=== PATIENT | female | born 1985 | race African-American/Black ===

== ENCOUNTER 2017-06-15 00:18 | Inpatient (IN) | payer OTHER ==
[~2017-06-15] VITALS: Ht 167.6 cm; Wt 62.9 kg
[2017-06-15] MEDS ORDERED: LORazepam 1 MG TAB PO PRN (02:30)
[2017-06-15] MEDS ORDERED: LORazepam 2 MG/ML VIAL IM PRN (02:30)
[2017-06-15] MEDS ORDERED: BENZTROPINE MESYLATE 2 MG/2 ML VIAL IM PRN (02:30)
[2017-06-15] MEDS ORDERED: diphenhydrAMINE HCL 50 MG CAP - HS PRN PO (02:30)
[2017-06-15] MEDS ORDERED: MAGNESIUM HYDROXIDE SUSP 30 ML CUP PO PRN (02:30)
[2017-06-15] MEDS ORDERED: ALUMINUM/MAGNESIUM/SIMETH 30 ML CUP PO PRN (02:30)
[2017-06-15] MEDS ORDERED: BENZTROPINE MESYLATE 1 MG TAB PO PRN (02:30)
[2017-06-15] MEDS ORDERED: diphenhydrAMINE HCL 50 MG/ML VIAL - HS PRN IM (02:30)
[2017-06-15 03:00] VITALS: BP 103/60; PULSE 72; RESP 16; TEMP 97.8; O2SAT 98
[2017-06-15] MEDS: ACETAMINOPHEN 325 MG TAB PO PRN ×2 (03:16→10:00)
[2017-06-15 10:21] LABS: ANION GAP 9 MEQ/L (5-15); BICARBONATE 24.7 MEQ/L (21.0-32.0); BLOOD UREA NITROGEN 8 MG/DL (7-18); CHLORIDE 106 MEQ/L (98-107); GLOMERULAR FILTRATION RATE 107 ML/MIN (>89); POTASSIUM 3.6 MEQ/L (3.5-5.1); SODIUM (NA) 140 MEQ/L (136-145)
[2017-06-15 10:28] LABS: HDL CHOLESTEROL 60.7 MG/DL (40.0-60.0); LDL CHOLESTEROL 54 MG/DL (0-99)
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
--- NOTE | 2017-06-15 13:17 | HHI.DS ---
Psychiatry Discharge Summary Advance Directive: No Reason Not Provided: not interested Mental Health AdvanceDirective: No Health Care Proxy: No Admission Admission Date Jun 15, 2017 at 02:10 Admission Diagnosis: Tobacco Use In Past 30 Days: No Tobacco Past 30 Days Alcohol Use: Never Results Blood Pressure 103 / 60 Vital Signs Date Time Temp Pulse Resp B/P Pulse Ox O2 Delivery O2 Flow Rate FiO2 06/15/17 03:00 97.8 72 16 103/60 98 Laboratory Tests Test 06/15/17 08:59 HDL Cholesterol 60.7 MG/DL (40.0-60.0) Laboratory Results Test 06/15/17 08:59 Triglycerides Level 43 MG/DL (42-150) Cholesterol Level 123 MG/DL (120-200) LDL Cholesterol 54 MG/DL (0-99) HDL Cholesterol 60.7 MG/DL (40.0-60.0) Medications Approp Antipsych med options 1 - Minimum of three failed multiple trials of monotherapy. 2 - Documented plan to taper to monotherapy due to previous use of multiple meds OR cross-taper in progress at D/C. 3 - Documentation of augmentation of Clozapine. 4 - Justification other than those listed in allowable values 1-3, document here : Discharge Discharge Disposition: Discharge Home Discharge Instructions Diet Instructions: As Tolerated, No Restrictions Activities you can perform: Weight Bearing as García Discharge/Advance Care Plan Goals to promote your health * To prevent worsening of your condition and complications * To maintain your health at the optimal level Directions to meet your goals Take your medications as prescribed Follow your dietary instruction Follow activity as directed Keep your appointments as scheduled Take your immunizations and boosters as scheduled If your symptoms worsen call your PCP, if no PCP go to Urgent Care Center or Emergency Room For 19/06 questions related to your inpatient stay or results of tests pending at discharge, please contact Dr. Francis Noguera at Smoking is Dangerous to Your Health. Avoid second hand smoking Francis Noguera MD Jun 15, 2017 13:17
[2017-06-15] MEDS ORDERED: IBUPROFEN 800 MG TAB PO ONE (13:45)
[2017-06-15] MEDS ORDERED: NAPROXEN 500 MG TAB PO ONE (15:00)
[2017-06-15 18:17] LABS: HEMOGLOBIN A1a 1.1 %; HEMOGLOBIN A1b 0.8 %; HEMOGLOBIN Ao 85.6 %; HEMOGLOBIN F 0.9 %; HEMOGLOBIN LA1C 1.8 %; HEMOGLOBIN P3 3.7 %
== END 2017-06-15 16:50 | disposition home or self-care (01) | DRG 882 ==
LOC: H260 02:10
PROVIDERS: ADMIT Psychiatry & Neurology Psychiatry; ATTEND Psychiatry & Neurology Psychiatry
DX: F43.20 Adjustment disorder, unspecified (principal); H91.90 Unspecified hearing loss, unspecified ear
CPT/HCPCS: 80048; 80061; 83036